=== PATIENT | female | born 1980 | race Caucasian/White ===

== ENCOUNTER 2021-10-15 12:14 | Outpatient (CLI) | payer BC, SELFPAY ==
--- NOTE | 2021-10-15 | MR_ITS ---
WS: [id number] MRI HEAD WITHOUT CONTRAST TECHNIQUE: Sagittal T1, T2 axial, T2 axial FLAIR, axial and coronal T1 images, axial susceptibility w eighted imaging, axial diffusion weighted images, and coronal T2 images were obtained. CLINICAL INFORMATION: HEADACHE, UNSPECIFIED COMPARISON: None. FINDINGS: T1 hyperintense 3.6 mm focus along at the foramen of Pandey may represent tiny colloid cyst versus volume averaging artifact. This can be further evaluated with gadolinium with high-resolution imaging for better anatomic detail. No hydrocephalus. No evidence of restricted diffusion to suggest acute ischemia. Ventricular system and basal cisterns are patent. Normal posterior fossa. Normal vascular flow voids at the skull base. No extra-axial flui d collections. No evidence of mass or mass effect. Paranasal sinuses and mastoid air cells well aerat ed. No hemosiderin on susceptibly weighted images. Normal optic chiasm and pituitary infundibulum. Tempor al lobes and hippocampal formations are normal in appearance. MR/MR head wo con* [id number] IMPRESSION: 1. No evidence of restricted diffusion to suggest acute ischemia. 2. T1 hyperintense 3.6 mm focus at the foramen of Pandey may represent tiny co lloid cyst versus volume averaging artifact. This can be further evaluated with gadolinium with high-resolution imaging. 3. No hydrocephalus. 4. Otherwise no suspicious intracranial signal abnormalities. Normal salomon-whit e differentiation. 5. Paranasal sinuses and mastoid air cells are well aerated. 6. No hemosiderin on susceptibly weighted images. 7. No other significant findings. Recommend follow-up with gadolinium and high-resolution pregadolinium axial and coronal imaging. MRI should contact Dr. Gaston for protocol.
== END 2021-10-15 12:15 | disposition home or self-care (01) ==
PROVIDERS: PCP Physician Assistant; Visit Provider Specialist
DX: R51.9 Headache, unspecified (principal)
CPT/HCPCS: 70551

== ENCOUNTER 2024-01-23 13:57 | Outpatient (CLI) | payer SELFPAY ==
--- NOTE | 2024-01-23 14:59 | CT_ITS ---
WS: [id number] CT CALCIUM SCORE REASON FOR VISIT: FAMILY HX OF ISCHEMIC HEART DZ; Coronary artery disease risk assessment COMPARISON: None TECHNIQUE: Noncontrast coronary CT in combination with quantitative analysis performed on a separate workstation were used to determine CACS (Agatston score) TOTAL EXAM DOSE: 35.57 mGy.cm ECG GATING: Prospective SCAN RANGE: Pulmonary artery bifurcation to Inferior aspect of heart COMPLICATIONS: None FINDINGS: Technical Quality/Examination Quality: Good Limitaiton: None OVERALL SCORES Total calcium score: 1 Total volume score: 3 mm3 Percentile: 50-75 % for age and gender ARTERY SCORES Left main coronary artery: 0 Left anterior descending artery: 0 Left circumflex artery: 0 Right coronary artery: 1 PDA: 0 OTHER FINDINGS: Mediastinum: Normal. Thoracic aorta: Normal. Lungs: Normal. Upper Abdomen: Normal. MINIMAL: 1-10 MILD: 11-100 MODERATE: 101-400 SEVERE:>400 CT/CT heart w calcium score [id number] IMPRESSION: Total calcium score 1 compatible with minimal coronary artery disease. GRADING OF CORONARY ARTERY DISEASE (BASED ON TOTAL CALCIUM SCORE) NO EVIDENCE OF CAD: 0 calcium score
== END 2024-01-23 13:58 | disposition home or self-care (01) ==
LOC: RAD 13:57
PROVIDERS: PCP Family Medicine; Visit Provider Family Medicine
DX: R07.9 Chest pain, unspecified (principal); Z82.49 Family history of ischemic heart disease and other diseases of the circulatory system
CPT/HCPCS: 75571